=== PATIENT | female | born 1985 | race Caucasian/White ===

== ENCOUNTER 2018-06-07 17:43 | Emergency (ER) | payer BC ==
[2018-06-07 17:57] VITALS: BP 114/55; TEMP 98.1; O2SAT 100
[2018-06-07] MEDS ORDERED: SULFA/TRIMETH 800/160 (DS) TAB 1 EA TAB PO ONE (18:05)
--- NOTE | 2018-06-07 18:06 | ED.PDOC ---
History of Present Illness - General Chief Complaint: Laceration Stated Complaint: Laceration to left thumb Time Seen by Provider: 06/07/18 17:52 Source: patient Exam Limitations: no limitations - History of Present Illness Initial Comments: The patient's 32-year-old female presenting to the emergency room secondary to cutting the very tip of her left thumb with a knife. The wound does look pretty clean. It occurred just prior to arrival. Minimal bleeding. The layer of skin is very thin. Timing/Duration: unsure Severity: mild Improving Factors: nothing Worsening Factors: nothing Associated Symptoms: denies symptoms Allergies/Adverse Reactions: Allergies NO KNOWN ALLERGY Allergy (Verified 06/07/18 17:58) Home Medications: Ambulatory Orders NK [NK] 06/07/18 Review of Systems - Review of Systems Constitutional: States: no symptoms reported EENTM: States: no symptoms reported Respiratory: States: no symptoms reported Cardiology: States: no symptoms reported Gastrointestinal/Abdominal: States: no symptoms reported Genitourinary: States: no symptoms reported Musculoskeletal: States: no symptoms reported Skin: States: see HPI Neurological: States: no symptoms reported Past Medical History (General) - Patient Medical History Hx Stroke: No Hx Congestive Heart Failure: No Hx Diabetes: No Surgical History: no surgical history - Vaccination History Hx Tetanus, Diphtheria Vaccination: No Hx Influenza Vaccination: Yes - Social History Hx Tobacco Use: No - Female History Patient is a Female of Child Bearing Age (10 -59 yrs old): Yes Family Medical History - Family History Mother Family History: Unknown Living Status: Unknown Physical Exam - Physical Exam General Appearance: Alert, Comfortable, No apparent distress Eye Exam: bilateral normal Ears, Nose, Throat: hearing grossly normal Neck: full range of motion Respiratory: no respiratory distress, no accessory muscle use Cardiovascular/Chest: normal peripheral pulses Peripheral Pulses: radial,right: 2+, radial,left: 2+ Rectal Exam: deferred Extremity: normal range of motion, normal capillary refill Neurologic: rock cutter II-XII nml as tested, no motor/sensory deficits, alert, normal mood/affect, oriented x 3 Skin Exam: normal color - laceration as above. Laceration is C-shaped and less than 1 cm in diameter. Comments: Vital Signs - 24 hr 06/07/18 17:54 Temperature 98.1 F Pulse Rate [ 90 Right Brachial] Respiratory 16 Rate Blood Pressure 114/55 [Right Arm] O2 Sat by Pulse 100 Oximetry Progress - Progress Progress: 06/07/18 18:05 the patient is a 32-year-old female presenting to emergency room secondary to a small C-shaped laceration to the tip of her left thumb. Wound was irrigated with water and 2 Steri-Strips were put in place. The tissue may go ahead and in the future. She does need to monitor for any infection. She was given 1 dose of Bactrim prophylactically. Steri-Strips will come off in 4-6 days. ER warnings were given. Departure - Departure Clinical Impression: Accidental laceration Disposition: Discharge to Home or Self Care Condition: Fair Departure Forms: ED Discharge - Pt. Copy, Patient Portal Self Enrollment Instructions: DI for Laceration Repair, DI for Laceration Repair Steri-Strips Diet: regular diet Activity: increase activity as tolerated Home Medications: Ambulatory Orders NK [NK] 06/07/18 Additional Instructions: the patient is a 32-year-old female presenting to emergency room secondary to a small C-shaped laceration to the tip of her left thumb. Wound was irrigated with water and 2 Steri-Strips were put in place. The tissue may go ahead and in the future. She does need to monitor for any infection. She was given 1 dose of Bactrim prophylactically. Steri-Strips will come off in 4-6 days. ER warnings were given.
== END 2018-06-07 18:17 | disposition home or self-care (01) ==
LOC: ER 17:43
DX: S61.012A Laceration without foreign body of left thumb without damage to nail, initial encounter (principal); W26.0XXA Contact with knife, initial encounter